=== PATIENT | female | born 1980 | race Caucasian/White ===

== ENCOUNTER 2018-01-14 17:01 | Emergency (ER) | payer BC, OTHER ==
[~2018-01-14] VITALS: Ht 175.3 cm; Wt 103.4 kg
[2018-01-14] MEDS ORDERED: HYDROCODONE/APAP 5MG-325MG TAB PO ONE (17:45)
[2018-01-14] MEDS ORDERED: ORPHENADRINE CITRATE 30 MG/ML VIAL IM ONE (17:45)
--- NOTE | 2018-01-14 19:22 | Diagnostic Imaging Report ---
EXAMINATION: Cervical spine, 5 views. CLINICAL HISTORY: Headache, midline cervical neck tenderness, no history of trauma. COMPARISON: None. DISCUSSION: The cervical spine is visualized from the skull base to C7. There is loss of the normal lordotic curvature of the cervical spine. No evidence of acute, displaced fracture, subluxation, or dislocation. The vertebral body heights and intervertebral disc spaces are normal. Bilateral oblique views show unremarkable neural foramina. The prevertebral soft tissues are within normal limits. Subtle fractures, ligamentous or soft tissue injuries cannot be excluded on the basis of this examination. IMPRESSION: Loss of the normal lordotic curvature of the cervical spine, which may be secondary to positioning or muscle spasm. No acute abnormalities. The staff physician below has personally reviewed this exam on the date of dictation. Signed by: Dr. Louie Melendez M.D. on 01/14/2018 7:19 PM
[2018-01-14] MEDS ORDERED: ROBAXIN-750750 MG PO (19:29)
[2018-01-14] MEDS ORDERED: ULTRAM 50MG50 MG PO (19:29)
== END 2018-01-14 19:57 | disposition home or self-care (01) ==
LOC: ER 17:01
DX: M54.2 Cervicalgia (principal); S16.1XXA Strain of muscle, fascia and tendon at neck level, initial encounter; R11.0 Nausea
CPT/HCPCS: 72050; 99283; J2360

== ENCOUNTER → 2018-07-09 | Day surgery (SDC) | payer BC ==
[~2018-07-09] MED LIST: EXCEDRIN MIGRA1 EAC3 PO; FENTANYL CITRATE/PF 100MCG/2 ML INJ ONE; IBUPROFEN200 MG PO; METOCLOPRAMIDE HCL 10 MG/2ML VIAL ONE; MIDAZOLAM HCL 2 MG/2 ML VIAL ONE; PROPOFOL IV EMULSION 10 MG/ML 20 ML VIAL ONE; ROBAXIN-750750 MG PO; ULTRAM 50MG50 MG PO
--- OUTSIDE RECORDS SUMMARY | 2018-07-09 10:46 | XMS REPORT ---
Author Author [facility] Address Unknown Phone Unavailable Care Team Providers Care P[employer] Field Service Technician Name Role Phone Beckie FORTUNE Unavailable Unavailable Problems This patient has no known problems. Allergies, Adverse Reactions, Alerts This patient has no known allergies or adverse reactions. Medications This patient has no known medications. Results Test Description Test Time Test Comments Text Results Atomic Results Result Comments CERVICAL SPINE 4 OR 5 VIEWS 2018-01-14 19:17:00 [facility] [address] [place] [address] Patient Name: HERMELINDA MCKEON MR #: [id number] : 1980 Age/Sex: 37/F Req #: [id number] Adm Physician: Ordered by: ANDRES FORTUNE MD Report #: [id number] Location: ER Room/Bed: Procedure: [id number] DX/CERVICAL SPINE 4 OR 5 VIEWS Exam Date: 01/14/18 Exam Time: 1820 REPORT STATUS: Signed EXAMINATION: Cervical spine, 5 views. CLINICAL HISTORY: Headache, midline cervical neck tenderness, no history of trauma. COMPARISON: None. DISCUSSION: The cervical spine is visualized from the skull base to C7. There is loss of the normal lordotic curvature of the cervical spine. No evidence of acute, displaced fracture, subluxation, or dislocation. The vertebral body heights and intervertebral disc spaces are normal. Bilateral oblique views show unremarkable neural foramina. The prevertebral soft tissues are within normal limits. Subtle fractures, ligamentous or soft tissue injuries cannot be excluded on the basis of this examination. IMPRESSION: Loss of the normal lordotic curvature of the cervical spine, which may be secondary to positioning or muscle spasm. No acute abnormalities. The staff physician below has personally reviewed this exam on the date of dictation. Signed by: Dr. Cyndi Melendez M.D. on 01/14/2018 7:19 PM Dictated By: CYNDI MELENDEZ MD 18 Transcribed By: ANTOINETTE on 01/14/181918 COPY TO: ANDRES FORTUNE MD
[2018-07-09 14:35] VITALS: BP 121/85
--- NOTE | 2018-07-09 21:38 | Operative Report ---
DATE OF PROCEDURE: 07/09/2018 SURGEON: Rohith Mcintyre MD PROCEDURE: EGD with esophageal dilatation and biopsies. INDICATIONS FOR EGD: Dysphagia, heartburn, indigestion. MEDICATION: The patient was done under MAC. Please see anesthesiologist's note. PROCEDURE IN DETAIL: With the patient in left lateral decubitus position, flexible fiberoptic Olympus gastroscope was introduced into the esophagus under direct visualization without any difficulty. There was some patchy erythema noted in distal esophagus. A minute nodule was biopsied at the GE junction. There was a mild stricture noted at the GE junction that was dilated to size 54-[place] Charles. The scope was then advanced with ease into the stomach traversing a small sliding hiatal hernia. The mucosa overlying the antrum and the body revealed some patchy erythema and [id number] edema and biopsies were obtained and sent to stain for H pylori. Pylorus appeared to be of normal contour and shape was intubated with ease and the scope was advanced all the way to the second portion of the duodenum. The scope was then withdrawn slowly and biopsies were obtained from the proximal second portion as well as the duodenal bulb. The scope was then withdrawn back into the stomach and retroflexed. Mucosa overlying the fundus appeared to be within normal limits. The previously described hiatal hernia was also noted in a retroflexed position. The scope was then straightened out, it was subsequently withdrawn. The patient tolerated the procedure well. IMPRESSION: 1. Distal esophagitis. 2. Minute nodule, GE junction biopsied. 3. Esophageal stricture at GE junction dilated to size 54-[place] Charles. 4. Hiatal hernia. 5. Gastritis, biopsied. Biopsies sent to stain for Helicobacter pylori. 6. Rule out sprue. PLAN: Follow up histology. Initiate Protonix 40 mg one p.o. q.a.m. a.c. Rohith Mcintyre MD [facility] [place][id number] cc: Shahram Sheffield MD
== END | disposition home or self-care (01) ==
LOC: OR 10:44
PROVIDERS: ATTEND Internal Medicine Gastroenterology
DX: K22.2 Esophageal obstruction (principal); K29.50 Unspecified chronic gastritis without bleeding; K22.70 Barrett's esophagus without dysplasia; K21.0 Gastro-esophageal reflux disease with esophagitis; K44.9 Diaphragmatic hernia without obstruction or gangrene; G43.909 Migraine, unspecified, not intractable, without status migrainosus; R03.0 Elevated blood-pressure reading, without diagnosis of hypertension; F17.210 Nicotine dependence, cigarettes, uncomplicated; Z79.82 Long term (current) use of aspirin; Z68.35 Body mass index [BMI] 35.0-35.9, adult
CPT/HCPCS: 43239; 43450; 81025; J2250; J2704; J2765